=== PATIENT | female | born 1970 | race Caucasian/White ===

== ENCOUNTER 2017-03-03 03:42 | Observation (INO) | payer OTHER ==
[~2017-03-03] VITALS: Ht 162.6 cm; Wt 72.0 kg
[~2017-03-03 03:42] MED LIST: BENTYL10 MG PO; BUTALB-APAP-CA1 EACH PO; CLOPIDOGREL75 MG PO; DILTIAZEM 24HR120 MG PO; EFFEXOR75 MG PO; KEFLEX500 MG PO; LIPITOR10 MG PO; LO-DOSE ASPIRIN81 M2 PO; LOPRESSOR25 MG PO; METOPROLOL SUC100 MG PO; Motrin PO; NITROSTAT0.4 MG SL; Percocet 5/325,Endoc PO; SYNTHROID112 MCG PO; SYNTHROID125 MCG PO; ULTRAM50 MG PO
[2017-03-03 04:42] LABS: EOSINOPHIL (%) 0 % (0-5); HEMATOCRIT 37.1 % (36.0-46.0); INSTRUMENT ABS NEUTROPHIL CT 2.9 K/uL; LYMPHOCYTE COUNT 2.1 K/uL (1.0-2.8); MCH 29.5 PG (29.0-34.0); MCHC 34.2 G/DL (30.0-36.0); MCV 86.3 FL (83-99); MEAN PLAT.VOLUME 9.7 uM^3 (9.5-12.4); MONOCYTE (%) 9.3 % (3-12); MONOCYTE COUNT 0.5 K/uL (0-0.8); NEUTROPHIL (%) 51.8 % (45-76); NEUTROPHIL COUNT 2.9 K/uL (1.8-6.4); PLATELET COUNT 242 K/uL (156-360); RBC DIS.WIDTH-CV 13.4 % (11.8-14.6); RBC DIS.WIDTH-SD 41.7 % (39-53); WHITE BLOOD COUNT 5.6 K/uL (4.1-10.2)
[2017-03-03 04:55] LABS: CHLORIDE 108 mEq/L (99-109); POTASSIUM 3.5 mEq/L (3.7-5.4); SODIUM 141 mEq/L (136-147)
[2017-03-03 04:56] LABS: GLUCOSE 99 mg/dL (70-99)
[2017-03-03 04:58] LABS: ANION GAP 11 MEQ/L (2-14)
[2017-03-03 05:00] LABS: GFR ESTIMATE (CALCULATED) > 59 mL/min/
[2017-03-03 05:01] LABS: UREA NITROGEN (BUN) 13 mg/dL (9-23)
[2017-03-03 05:03] LABS: CREATINE KINASE 143 IU/L (1-294)
[2017-03-03 05:06] LABS: TROP-I INTERPRETATION NEGATIVE; TROPONIN-I < 0.01 ng/mL (0.0-0.30)
[2017-03-03] MEDS ORDERED: FIORICET 50-301 EACH PO (08:42)
[2017-03-03] MEDS ORDERED: CARTIA XT120 MG PO (08:43)
[2017-03-03] MEDS ORDERED: COREG6.25 M1 PO (08:44)
[2017-03-03] MEDS ORDERED: TOPAMAX50 MG PO (08:44)
[2017-03-03] MEDS ORDERED: LIPITOR10 MG PO (08:44)
[2017-03-03] MEDS ORDERED: ULTRAM50 MG PO (08:45)
[2017-03-03] MEDS ORDERED: PHENTERMINE HCL15 MG PO (08:45)
[2017-03-03 09:03] VITALS: BP 105/61
[2017-03-03 11:18] VITALS: BP 118/65
[2017-03-03 11:38] LABS: TROP-I INTERPRETATION NEGATIVE; TROPONIN-I < 0.01 ng/mL (0.0-0.30)
[2017-03-03 16:15] VITALS: BP 130/71
[2017-03-03 16:52] LABS: TROP-I INTERPRETATION NEGATIVE; TROPONIN-I < 0.01 ng/mL (0.0-0.30)
[2017-03-03] MEDS ORDERED: DILTIAZEM 24HR120 MG PO (17:34)
== END 2017-03-03 18:29 | disposition home or self-care (01) ==
LOC: EME 03:42 → EDOF 07:57 → 5WEST 08:55
PROVIDERS: Emergency Medicine; Internal Medicine
DX: R07.89 Other chest pain (principal); I10 Essential (primary) hypertension; E03.9 Hypothyroidism, unspecified; G43.909 Migraine, unspecified, not intractable, without status migrainosus; I25.10 Atherosclerotic heart disease of native coronary artery without angina pectoris; I25.2 Old myocardial infarction; Q23.1 Congenital insufficiency of aortic valve; Q21.0 Ventricular septal defect
CPT/HCPCS: 71020; 80048; 82550; 84484; 85025; 93005; 99281; 99284; G0378; J1200; J2405; J2765